=== PATIENT | female | born 1985 | race Two or more races ===

== ENCOUNTER → 2024-04-13 10:19 | Outpatient (REF) | payer OTHER, SELFPAY | LOC: HWWDC 10:19 | PROVIDERS: ATTENDING PHYSICIAN Physician Assistant Medical | DX: Z12.31 Encounter for screening mammogram for malignant neoplasm of breast (principal) | CPT/HCPCS: 77063; 77067 ==

== ENCOUNTER 2024-07-07 10:26 | Emergency (ER) | payer OTHER, SELFPAY ==
[2024-07-07 10:27] VITALS: BP 123/69
--- NOTE | 2024-07-07 10:29 | ED.GENMED ---
ED Provider Triage
<Sabine Montelongo PA-C - Last Filed: 07/07/24 19:03>
-
Patient seen by provider in Triage?: Seen in Triage
Attestation: A medical screening examination has been initiated by a qualified medical provider. Based on the assessment performed at this time, it has been determined that an emergent medical condition may exist and the patient has been informed
that further medical evaluation and possible additional diagnostic testing may be needed.
HPI: 38yoF here with R sided headache x 2 weeks. Noticed that R side of jaw was swollen this morning. Also having R ear pain. No vomiting, fevers, visual changes, dental pain, dysphagia.
GENERAL: Alert , in no apparent distress
EYE: No visual abnormalities.
NECK: Trachea midline
ENT: No visible abnormalities.
LUNGS: No acute respiratory distress
NEUROLOGICAL: Alert and oriented
SKIN: Skin intact. No visible changes.
MUSCULOSKELETAL: Moving extremities normally
PSYCH: Normal and appropriate interaction.
This is a medical evaluation conducted in person to initiate diagnostic evaluation and provide initial therapeutics. Please see further documentation by the treating clinician.
Swelling noted at angle of R jaw. Basic labs, CT head, and CT facial bones ordered.
History of Present Illness
<Sabine Montelongo PA-C - Last Filed: 07/07/24 19:03>
General
Chief Complaint: Headache
Time Seen by Provider: 07/07/24 11:55
<Nichelle Santiago PA-C - Last Filed: 07/07/24 17:44>
General
Source: patient
Exam Limitations: none
Nursing documentation reviewed up to this point in time: agreed with
History of Present Illness
History of Present Illness:
This is a 38-year-old female with no past medical history who presents emergency department today with concerns of an intermittent headache for the past 2 weeks as well as right sided facial swelling. Patient reports that he has been having
intermittent headaches that she feels on the right temporal region that radiates behind her right eye. Patient states that the headaches do relieved with Tylenol or ibuprofen however due to return when the medication wears off. She notes no
trigger to her headaches. She has no history of migraines, she denies any head or neck trauma. She states that when she woke up this morning, she noted pain and swelling along her right cheek and right jaw. Patient denies any cavities or any
dental abnormalities. Patient denies any fevers or chills. Patient states that the area is tender to the touch, she denies any rashes. Patient Nuys any nausea or vomiting, cough or cold-like symptoms, or any allergies. Patient has never had this
happen before. Patient also notes she has pain in her right ear however patient states that she has been worked up for this before and follows with [facility].
Review of Systems
<Nichelle Santiago PA-C - Last Filed: 07/07/24 17:44>
Review of Systems
All Other Systems: ROS reviewed and negative except as documented in HPI and ROS
Phy Exam
<Nichelle Santiago PA-C - Last Filed: 07/07/24 17:44>
Physical Exam
Physical Exam:
General: Patient is well appearing and in no acute distress; non-toxic
Skin: Warm and dry, no rashes or lesions
Head: Normocephalic, atraumatic
Eyes: Sclera non-icteric. EOMs intact.
Mouth: No intraoral lesions, dentition intact
Cardiac: Regular rate and rhythm, no murmurs
Pulm: Normal respiratory effort, no wheezes, rales, rhonchi
Neuro: CN II-XII intact, no focal neurologic deficits.
Psychiatric: Appropriate mood and affect.
Course
Williamlt;Sabine Montelongo PA-C - Last Filed: 07/07/24 19:03>
Orders/Labs/Results
Orders:
Orders
07/07/24 10:33
CT Facial Bones W/ Iv Contrast Urgent
Comment:
Reason For Exam: Swelling at angle of R jaw
CT Head W/o Iv Contrast Urgent
Comment:
Reason For Exam: R sided headaches x 2 weeks
07/07/24 10:41
Complete Blood Count/With Diff Urgent
Comprehensive Metabolic Panel Urgent
HCG, Serum Qualitative Screen Urgent
Comment: ADD ON
07/07/24 11:11
Add On- LAB Urgent
Tests Added?: serum hcg
07/07/24 12:25
Ibuprofen [Motrin] 600 mg PO NOW STA
07/07/24 12:55
Mumps Virus IgG Urgent
Mumps Virus IgM [S] Urgent
Abnormal Lab Results
07/07/24
10:41
RBC 4.15 L 10^6/uL
(4.20-5.40)
Hct 36.7 L %
(37.0-47.0)
07/07/24 10:41
07/07/24 10:41
Vital Signs
Initial and Last Documented VS:
Initial Vital Signs
Temp Pulse Resp BP Pulse Ox
97.5 F 87 18 123/69 100
07/07/24 10:27 07/07/24 10:27 07/07/24 10:27 07/07/24 10:27 07/07/24 10:27
Last Documented Vital Signs
Temp Pulse Resp BP Pulse Ox
97.5 F 69 17 114/70 100
07/07/24 10:27 07/07/24 14:59 07/07/24 14:59 07/07/24 14:59 07/07/24 10:27
Williamlt;Nichelle Santiago PA-C - Last Filed: 07/07/24 17:44>
Orders/Labs/Results
Orders:
Orders
07/07/24 10:33
CT Facial Bones W/ Iv Contrast Urgent
Comment:
Reason For Exam: Swelling at angle of R jaw
CT Head W/o Iv Contrast Urgent
Comment:
Reason For Exam: R sided headaches x 2 weeks
07/07/24 10:41
Complete Blood Count/With Diff Urgent
Comprehensive Metabolic Panel Urgent
HCG, Serum Qualitative Screen Urgent
Comment: ADD ON
07/07/24 11:11
Add On- LAB Urgent
Tests Added?: serum hcg
07/07/24 12:25
Ibuprofen [Motrin] 600 mg PO NOW STA
07/07/24 12:55
Mumps Virus IgG Urgent
Mumps Virus IgM [S] Urgent
Abnormal Lab Results
07/07/24
10:41
RBC 4.15 L 10^6/uL
(4.20-5.40)
Hct 36.7 L %
(37.0-47.0)
07/07/24 10:41
07/07/24 10:41
Vital Signs
Initial and Last Documented VS:
Initial Vital Signs
Temp Pulse Resp BP Pulse Ox
97.5 F 87 18 123/69 100
07/07/24 10:27 07/07/24 10:27 07/07/24 10:27 07/07/24 10:27 07/07/24 10:27
Last Documented Vital Signs
Temp Pulse Resp BP Pulse Ox
97.5 F 69 17 114/70 100
07/07/24 10:27 07/07/24 14:59 07/07/24 14:59 07/07/24 14:59 07/07/24 10:27
Williamlt;Nichelle Santiago PA-C - Last Filed: 07/07/24 17:44>
MDM/Problems Addressed
Differential Diagnosis Includes:
see below
MDM/Problems Addressed:
NUMBER AND COMPLEXITY OF PROBLEMS ADDRESSED AT THE ENCOUNTER
� Chronic conditions affecting care: n/a
� Acute Exacerbation and/or Progression of Chronic Illness: n/a
� Differential Diagnosis includes: sialolithiasis, parotitis, mumps, dental infection, TMJ syndrome, tension headache, migraine headache
AMOUNT AND/OR COMPLEXITY OF DATA TO BE REVIEWED AND ANALYZED
� I performed an independent evaluation of and my interpretation is:
CT:
Laboratory Studies: cbc and cmp unremarkable
Other:
� Review of other/old records: Reviewed previous ER social documentation from 06/01/2022, patient seen for chest pain, was discharged with unremarkable workup
� Clinical information was obtained by an independent historian:
� Prescriptions/Medications Considered but not given: none
� Further testing considered but not performed: none
RISK OF COMPLICATIONS AND/OR MORBIDITY OR MORTALITY OF PATIENT MANAGEMENT
� Social determinants of health affecting care: none
� Discussion with other providers: ER attending
� Escalation of care including admission/observation vs risk of discharge considered:
38-year-old female with no past medical history presents emergency department today with intermittent right-sided headaches as well as right-sided facial swelling. The headaches relieve with Tylenol and Ibuprofen. Patient has unremarkable
neurologic exam. In light of daily headaches, CAT scan of the head was done which was negative for any intracranial hemorrhage or mass, normal-sized ventricles noted. Patient on exam does have some right submandibular swelling. No intraoral
lesions, dentition intact, do not suspect dental etiology. Patient is vaccinated. CAT scan of the facial bones reveals right parotid gland slightly enlarged with stranding and adjacent fat which may represent mild parotitis. Will start patient on
antibiotic to cover for bacterial etiology although could be viral or result of salivary stone. I advised patient to follow-up with her ENT with nathaniel to ensure the resolution of her symptoms and for reassessment.
<Nichelle Santiago PA-C - Last Filed: 07/07/24 17:44>
*Pulse Oximetry
Patient hypoxic: no
*Critical Care Note
Total Time (30-74mins, 75-104mins- exclusive of procedures): Not Applicable
ED Attending Note
<Sabine Montelongo PA-C - Last Filed: 07/07/24 19:03>
-
Portions of this chart may have been created with voice recognition software.� Occasional wrong word or��sound alike� substitutions may have occurred due to the inherent limitations of voice recognition software.
Discharge Plan
Departure
Patient Disposition: Home (Routine Discharge)
Date of Disposition: 07/07/24
Time of Disposition: 14:51
Patient with high blood pressure during this ER visit?: No
Condition: Good
Discharge Problem:
Acute parotitis
Instructions: Parotitis, Headache, Adult (DC)
Prescriptions:
New
amoxicillin-pot clavulanate 875-125 mg tablet
1 tab PO BID 7 Days Qty: 14 0RF
No Action
Multi Vitamin
1 tab PO DAILY
Referrals:
Joe Christine DO [Family Provider] -
Esequiel Thao MD [Active] - Call in 1-3 days for appt
Activity Restrictions/Additional Instructions:
Augmentin has been sent to your pharmacy. Please take 1 tablet twice daily for 7 days. Please follow-up with your [facility] physician.
PLEASE RETURN TO EMERGENCY DEPARTMENT SHOULD YOU DEVELOP CHEST PAIN, NAUSEA AND VOMITING, FEVERS AND CHILLS, SHORTNESS OF BREATH, DIZZINESS, LIGHTHEADEDNESS, OR ANY OTHER SIGNS OR SYMPTOMS WORRISOME TO YOU.
Interventions
Interventions:
*Risk Screen - Suicide Last Done: 07/07/24 10:27
*General Assessment Last Done: 07/07/24 10:27
*Neglect/Abuse Screening Last Done: 07/07/24 10:27
*ED COVID-19 Vaccine History Last Done: 07/07/24 10:27
*Nursing Disposition Last Done: 07/07/24 14:59
ED- Neurological Assessment Last Done: 07/07/24 13:23
Discharge Date and Time
Discharge Date/Time: 07/07/24 15:00
Print Language: PASHTO
[2024-07-07 10:49] LABS: % Basophils 1.2 % (0-2); % Eosinophils 2.1 % (0-6); % Immature Granulocytes 0.4 % (0-0.5); % Lymphocytes 34.7 % (20.5-51.1); % Monocytes 7.5 % (1.7-9.3); % Neutrophils 54.1 % (42.2-75.2); Absolute Basophils 0.1 10^3/uL (0-0.2); Absolute Eosinophils 0.1 10^3/uL (0-0.7); Absolute Monocytes 0.4 10^3/uL (0.1-0.6); Absolute Neutrophils 3.1 10^3/uL (1.4-6.5); Hematocrit 36.7 % (37.0-47.0); Hemoglobin 12.7 g/dL (12.0-16.0); Mean Corp Hgb Conc. 34.6 g/dL (33.0-37.0); Mean Corpuscular Hgb 30.6 pg (27.0-31.0); Mean Corpuscular Volume 88.4 fL (81.0-99.0); Nucleated Red Blood Cells % 0 %; Platelet Count 216 10^3/uL (130-400); Red Blood Cell Count 4.15 10^6/uL (4.20-5.40); White Blood Cell Count 5.7 10^3/uL (4.8-10.8)
[2024-07-07 11:14] LABS: ALT (SGPT) 14 U/L (0-35); AST (SGOT) 19 U/L (14-36); Albumin 4.5 g/dl (3.5-5.0); Alkaline Phosphatase 55 U/L (38-126); Blood Urea Nitrogen 13 mg/dl (7-17); Calcium 9.2 mg/dl (8.4-10.2); Carbon Dioxide 28 mmol/L (22-30); Chloride 104 mmol/L (98-107); Glucose 97 mg/dl (70-99); Potassium 4.3 mmol/L (3.5-5.1); Sodium 140 mmol/L (135-145); Total Bilirubin 0.6 mg/dl (0.2-1.3); Total Protein 7.2 g/dl (6.3-8.2); eGFR > 60.00
[2024-07-07 11:34] LABS: HCG, Serum Qualitative Screen Negative
[2024-07-07] MEDS: MOTRIN 600 MG PO (12:34)
[2024-07-07 14:59] VITALS: BP 114/70
[2024-07-09 13:31] LABS: Mumps Virus IgG Negative
[2024-07-10 01:13] LABS: Mumps Virus IgM 0.27 IV (<=0.79)
== END 2024-07-07 15:00 | disposition home or self-care (01) ==
LOC: EMR 10:26
PROVIDERS: Physician Assistant; EMERGENCY PHYSICIAN Emergency Medicine; FAMILY PHYSICIAN Family Medicine
DX: K11.21 Acute sialoadenitis (principal); R51.9 Headache, unspecified; H92.01 Otalgia, right ear; R22.0 Localized swelling, mass and lump, head
CPT/HCPCS: 99284; 70450; 70487; 80053; 84703; 85025; 86735; Q9967

== ENCOUNTER → 2024-10-01 09:08 | Outpatient (REF) | payer OTHER, SELFPAY | LOC: WDC 09:08 | PROVIDERS: ATTENDING PHYSICIAN Physician Assistant Medical | DX: N63.20 Unspecified lump in the left breast, unspecified quadrant (principal); N63.23 Unspecified lump in the left breast, lower outer quadrant | CPT/HCPCS: 76642; 77061; 77065 ==

== ENCOUNTER → 2024-10-16 09:00 | Outpatient (REF) | payer OTHER, SELFPAY | LOC: HWRAD 09:00 | PROVIDERS: ATTENDING PHYSICIAN Internal Medicine | DX: M25.561 Pain in right knee (principal) | CPT/HCPCS: 73564 ==

== ENCOUNTER → 2025-03-03 08:05 | Outpatient (REF) | payer OTHER, SELFPAY | LOC: WDC 08:05 | PROVIDERS: ATTENDING PHYSICIAN Physician Assistant Medical | DX: R92.8 Other abnormal and inconclusive findings on diagnostic imaging of breast (principal) | CPT/HCPCS: 76642 ==

== ENCOUNTER → 2025-04-14 09:59 | Outpatient (REF) | payer OTHER, SELFPAY | LOC: HWWDC 09:59 | PROVIDERS: ATTENDING PHYSICIAN Physician Assistant Medical | DX: Z12.31 Encounter for screening mammogram for malignant neoplasm of breast (principal) | CPT/HCPCS: 77063; 77067 ==